=== PATIENT | female | born 1970 ===

== ENCOUNTER → 2019-10-24 06:00 | Outpatient (CLI) | payer OTHER ==
[~2019-10-24] VITALS: Ht 157.5 cm; Wt 78.0 kg
[~2019-10-24 06:00] MED LIST: IRON PO
== END | disposition home or self-care (01) ==
LOC: EKG 06:00 → ADM 08:00 → EDSTATUS 10-29 09:00 → SURH 10-29 09:00
DX: N95.0 Postmenopausal bleeding (principal); D25.1 Intramural leiomyoma of uterus

== ENCOUNTER 2020-02-28 07:00 | Inpatient (IN) | payer OTHER ==
[~2020-02-28] VITALS: Ht 157.5 cm; Wt 81.6 kg
[2020-03-05] MEDS ORDERED: IBUPROFEN800 MG PO (06:49)
[2020-03-05] MEDS ORDERED: PERCOCET 5-3251 EACH PO (06:50)
== END 2020-03-05 08:35 | disposition home or self-care (01) | DRG 743 ==
LOC: O/R 03-03 07:00 → SURH 03-03 07:00 → OB/GYN 03-03 07:47 → O/R 03-03 07:47 → SURH 03-03 09:45 → OB/GYN 03-03 13:26
PROVIDERS: ADMIT Obstetrics & Gynecology Gynecology; ATTEND Obstetrics & Gynecology Gynecology
PROC: 0UB70ZZ Excision of Bilateral Fallopian Tubes, Open Approach (ICD-10-PCS; 2020-03-03)
PROC: 0UT90ZZ Resection of Uterus, Open Approach (ICD-10-PCS; principal; 2020-03-03 09:45)
DX: D25.1 Intramural leiomyoma of uterus (principal); D25.0 Submucous leiomyoma of uterus; D25.2 Subserosal leiomyoma of uterus